=== PATIENT | male | born 1970 | race Caucasian/White ===

== ENCOUNTER 2022-01-17 09:14 | Emergency (ER) | payer OTHER ==
[~2022-01-17] VITALS: Ht 182.9 cm; Wt 75.0 kg
[2022-01-17] MEDS ORDERED: ONDANSETRON 4MG ODT PO ONE (09:45)
[2022-01-17] MEDS ORDERED: TETANUS AND DIPHTHERIA TOX/PF 0.5ML SYR (ADULT) IM ONE (09:45)
[2022-01-17 10:34] VITALS: BP 124/60
== END 2022-01-17 10:37 | disposition home or self-care (01) ==
LOC: ER 09:14
DX: S01.111A Laceration without foreign body of right eyelid and periocular area, initial encounter (principal); Y04.0XXA Assault by unarmed brawl or fight, initial encounter; Y93.89 Activity, other specified; Y92.89 Other specified places as the place of occurrence of the external cause; Y99.8 Other external cause status
CPT/HCPCS: 12011; 90471; 90714; 99283; Q0162